=== PATIENT | male | born 1990 | race Caucasian/White ===

== ENCOUNTER → 2019-11-26 | Emergency (ER) | payer MEDICAID, OTHER ==
[~2019-11-26] VITALS: Ht 195.6 cm; Wt 113.4 kg
[~2019-11-26] MED LIST: ACETAMINOPHEN 325 MG TAB PO ONE; LORazepam 0.5 MG TAB PO ONE; SERTRALINE HCL 50 MG TAB PO ONE; TEMAZEPAM 15 MG CAP PO ONE; ZOLPIDEM TARTRATE 5 MG TAB PO ONE
[2019-11-26 18:13] LABS: Basophils # (auto) 0 10 ^3/uL (0-0.2); Basophils % (auto) 0.2 % (0.0-2.0); Eosinophils # (auto) 0.3 10 ^3/uL (0-0.8); Eosinophils % (auto) 2.9 % (0.0-7.0); Hematocrit 47.5 % (41.0-53.0); Lymphocytes # (auto) 2.6 10 ^3/uL (0.4-5.4); Lymphocytes % (auto) 25.5 % (10.0-50.0); Mean Corpuscular Hemoglobin 30.6 pg (28.0-32.0); Mean Corpuscular Hgb Conc. 33.8 g/dL (32.0-36.0); Mean Corpuscular Volume 90.5 fL (80.0-100.0); Monocytes # (auto) 0.6 10 ^3/uL (0-1.3); Monocytes % (auto) 6.2 % (0.0-12.0); Neutrophils # (auto) 6.6 10 ^3/uL (1.6-8.6); Neutrophils % (auto) 65.2 % (37.0-80.0); Platelet Count (auto) 313 10^3/uL (140-450); Red Blood Cells 5.24 10^6/uL (4.5-5.90); Red Cell Distribution Width 12.6 % (11.8-14.3); White Blood Cell 10.1 10^3/uL (4.4-10.8)
[2019-11-26 18:31] LABS: Urine WBC None Seen /hpf (0 - 3)
[2019-11-26 18:42] LABS: Albumin 4.2 g/dL (3.4-5.0); BUN/Creatinine Ratio 16.5; Calcium 9.2 mg/dL (8.5-10.1); Potassium 3.9 mmol/L (3.5-5.1); Salicylate < 1.7 mg/dL (2.8-20.0)
[2019-11-26 18:45] LABS: Total Protein 7.7 g/dL (6.4-8.2)
[2019-11-26 18:53] LABS: Urine Bacteria NONE SEEN /hpf (None Seen); Urine Blood Negative /uL (Negative); Urine Specific Gravity 1.019 (1.001-1.035)
[2019-11-26 18:53] LABS: Acetaminophen < 2.0 ug/mL (10-30)
[2019-11-26 18:54] LABS: Amphetamine Screen, Urine NEGATIVE (NEGATIVE); Benzodiazephine Screen, Urine NEGATIVE (NEGATIVE); Cannabinoid Screen, Urine POSITIVE (NEGATIVE); Cocaine Screen, Urine NEGATIVE (NEGATIVE); Opiate Scree,Urine NEGATIVE (NEGATIVE); Phencyclidine Screen, Urine NEGATIVE (NEGATIVE)
[2019-11-26 19:01] LABS: Barbiturate Scree,Urine NEGATIVE (NEGATIVE)
[2019-11-28] MEDS: SERTRALINE HCL 50 MG TAB PO SCH ×2 (03:19→22:00)
[2019-11-28 20:30] VITALS: BP 136/78
== END | disposition home or self-care (01) ==
LOC: ER 15:21
DX: F32.9 Major depressive disorder, single episode, unspecified (principal); F19.10 Other psychoactive substance abuse, uncomplicated; R45.851 Suicidal ideations; F41.9 Anxiety disorder, unspecified; F20.9 Schizophrenia, unspecified; F17.210 Nicotine dependence, cigarettes, uncomplicated
CPT/HCPCS: 36415; 70490; 71045; 80053; 80307; 80329; 81001; 85025